=== PATIENT | male | born 1950 | race Caucasian/White ===

== ENCOUNTER → 2023-08-31 06:23 | Day surgery (SDC) | payer MEDICARE, OTHER, SELFPAY | LOC: GI 06:23 | PROVIDERS: ATTENDING PHYSICIAN Specialist | DX: Z12.11 Encounter for screening for malignant neoplasm of colon (principal); D12.3 Benign neoplasm of transverse colon | CPT/HCPCS: 45380; 88305 ==

== ENCOUNTER → 2023-09-16 12:28 | Outpatient (REF) | payer MEDICARE, OTHER, SELFPAY | LOC: RAD 12:28 | PROVIDERS: ATTENDING PHYSICIAN Physician Assistant | DX: M54.16 Radiculopathy, lumbar region (principal); M25.551 Pain in right hip | CPT/HCPCS: 72110; 73502 ==

== ENCOUNTER → 2023-10-19 10:37 | Outpatient (REF) | payer MEDICARE, OTHER, SELFPAY ==
[2023-10-19 13:19] LABS: Uric Acid 4.6 mg/dl (3.5-8.5)
== END ==
LOC: REG 10:37
PROVIDERS: ATTENDING PHYSICIAN Specialist; FAMILY PHYSICIAN Family Medicine
DX: N20.0 Calculus of kidney (principal)
CPT/HCPCS: 36415; 74018; 84550

== ENCOUNTER → 2023-12-20 16:12 | Outpatient (REF) | payer MEDICARE, OTHER, SELFPAY | LOC: PAVMRI 16:12 | PROVIDERS: ATTENDING PHYSICIAN Orthopaedic Surgery; FAMILY PHYSICIAN Family Medicine | DX: M25.512 Pain in left shoulder (principal); M25.511 Pain in right shoulder | CPT/HCPCS: 73221 ==

== ENCOUNTER → 2024-01-03 10:57 | Outpatient (REF) | payer MEDICARE, OTHER, SELFPAY ==
[2024-01-03 14:14] LABS: Hematocrit 44.8 % (39.0-52.0); Hemoglobin 14.8 g/dL (13.0-18.0); Mean Corpuscular Hgb 29.2 pg (27.0-31.0); Mean Corpuscular Volume 88.5 fL (80.0-94.0); Mean Platelet Volume 10.1 fL (7.4-10.4); Platelet Count 255 10^3/uL (130-400); Red Blood Cell Count 5.06 10^6/uL (4.70-6.10); Red Cell Dist. Width 13.4 % (11.5-14.5); White Blood Cell Count 6.8 10^3/uL (4.8-10.8)
== END ==
LOC: SDSPAT 10:57
PROVIDERS: ATTENDING PHYSICIAN Orthopaedic Surgery; FAMILY PHYSICIAN Family Medicine
DX: Z01.818 Encounter for other preprocedural examination (principal)
CPT/HCPCS: 36415; 85027; 93005

== ENCOUNTER 2024-01-13 06:33 | Day surgery (SDC) | payer MEDICARE, OTHER, SELFPAY ==
[2024-01-03 12:18] VITALS: BMI 34.7
[2024-01-13] VITALS (9 sets, daily range): BP systolic 125–144; BP diastolic 75–88; BMI 34.7
[2024-01-13] MEDS: NORMOSOL-R/PLASMALYTE-A 1000 IV (09:55)
[2024-01-13] MEDS: TYLENOL 1000 MG PO (11:05)
== END 2024-01-13 16:57 | disposition home or self-care (01) ==
LOC: SDS 06:33
PROVIDERS: ATTENDING PHYSICIAN Orthopaedic Surgery
DX: M75.101 Unspecified rotator cuff tear or rupture of right shoulder, not specified as traumatic (principal)
CPT/HCPCS: 29827; 29823; C1713

== ENCOUNTER 2024-03-09 09:52 | Outpatient (RCR) | payer MEDICARE, OTHER, SELFPAY | END 2024-03-09 23:59 | disposition home or self-care (01) | LOC: RPT 09:52 | PROVIDERS: ATTENDING PHYSICIAN Orthopaedic Surgery; FAMILY PHYSICIAN Family Medicine | DX: M25.511 Pain in right shoulder (principal); Z47.89 Encounter for other orthopedic aftercare; Z98.890 Other specified postprocedural states; M62.81 Muscle weakness (generalized); Z73.6 Limitation of activities due to disability; M25.611 Stiffness of right shoulder, not elsewhere classified | CPT/HCPCS: 97010; 97110; 97140; 97161 ==

== ENCOUNTER 2024-04-09 09:48 | Outpatient (RCR) | payer MEDICARE, OTHER, SELFPAY | END 2024-04-09 23:59 | disposition home or self-care (01) | LOC: RPT 09:48 | PROVIDERS: ATTENDING PHYSICIAN Orthopaedic Surgery; FAMILY PHYSICIAN Family Medicine | DX: M25.511 Pain in right shoulder (principal); M62.81 Muscle weakness (generalized); Z73.6 Limitation of activities due to disability; Z47.89 Encounter for other orthopedic aftercare; M25.611 Stiffness of right shoulder, not elsewhere classified; Z98.890 Other specified postprocedural states | CPT/HCPCS: 97010; 97110 ==

== ENCOUNTER 2024-04-27 10:11 | Outpatient (RCR) | payer MEDICARE, OTHER, SELFPAY | END 2024-04-27 23:59 | disposition home or self-care (01) | LOC: RPT 10:11 | PROVIDERS: ATTENDING PHYSICIAN Orthopaedic Surgery; FAMILY PHYSICIAN Family Medicine | DX: M25.511 Pain in right shoulder (principal); M62.81 Muscle weakness (generalized); Z73.6 Limitation of activities due to disability; M25.611 Stiffness of right shoulder, not elsewhere classified; Z47.89 Encounter for other orthopedic aftercare; Z98.890 Other specified postprocedural states | CPT/HCPCS: 97010; 97110 ==

== ENCOUNTER → 2024-11-20 11:01 | Outpatient (REF) | payer MEDICARE, OTHER, SELFPAY | LOC: RAD 11:01 | PROVIDERS: ATTENDING PHYSICIAN Specialist; FAMILY PHYSICIAN Family Medicine | DX: N20.0 Calculus of kidney (principal) | CPT/HCPCS: 74018 ==